=== PATIENT | female | born 1990 | race American Indian/Alaskan Native ===

== ENCOUNTER 2019-12-23 11:07 | Emergency (ER) | payer MEDICAID ==
[2019-12-23 11:43] VITALS: BP 110/74
--- NOTE | 2019-12-23 12:00 | Event Note ---
ED Screening Note Date of service: 12/23/19 Time: 11:57 ED Screening Note: Pt complains of chest pain x yesterday states intermittent x 1 year substernal; states feels liek something is stuck in her chest +tenderness to palpation This initial assessment/diagnostic orders/clinical plan/treatment(s) is/are subject to change based on patients health status, clinical progression and re- assessment by fellow clinical providers in the ED. Further treatment and workup at subsequent clinical providers discretion. Patient/guardian urged not to elope from the ED as their condition may be serious if not clinically assessed and managed. Initial orders include: CXR labs
== END 2019-12-23 12:00 | disposition left against medical advice (07) ==
LOC: ED 11:07
DX: R07.9 Chest pain, unspecified (principal); Z53.21 Procedure and treatment not carried out due to patient leaving prior to being seen by health care provider
CPT/HCPCS: 93005; 93010

== ENCOUNTER 2022-02-23 21:00 | Inpatient (IN) | payer MEDICAID, MEDICARE ==
[2022-02-23 22:07] VITALS: BP 103/65
--- NOTE | 2022-02-23 22:45 | History and Physical Report ---
History of Present Illness Date of admission: 02/23/22 21:15 History of present illness: Chief complaint: Contractions History of present illness: The patient is 36 weeks. She complained of contractions. There is no vaginal bleeding. There is no leakage of fluid. There is good movement. Upon investigation of the records, cervix was 4 cm dilated in the office. Objective: Cervical exam was 4 cm dilated. Contractions are irregular. Electronic monitoring is category 1. Impression: 1.) 36 weeks 2.) contractions Plan: As the cervix is unchanged, give IV fluids and discharged home. Past History - Obstetrical History : 4 Medications and Allergies Allergies Allergy/AdvReac Type Severity Reaction Status Date / Time No Known Allergies Allergy Verified 08/16/15 07:46 Home Medications Medication Instructions Recorded Confirmed Last Taken Type #103/Iron Fumarate/FA 1 each PO QDAY #30 tab 02/12/15 08/17/15 2 Days Ago Rx [ ] ~08/15/15 Amoxicillin [Amoxicillin TAB] 875 mg PO BID #20 tablet 07/01/16 Unknown Rx Ibuprofen [Motrin] 600 mg PO Q8H PRN #15 tablet 07/01/16 Unknown Rx Triamcinolone 0.5% [Kenalog 0.5% 1 applic TP TID #3 tube 02/13/19 Unknown Rx CREAM] - Vital Signs Vital signs: Vital Signs Pulse Ox 100 02/23/22 21:59 Temp Pulse Resp BP Pulse Ox 98.6 F 84 103/65 97 02/23/22 22:07 02/23/22 22:40 02/23/22 22:05 02/23/22 22:40 Results Result Diagrams: 02/23/22 22:00 All other labs normal.
[2022-02-23] MEDS ORDERED: ePHEDrine SULFATE 50 MG/1 ML INJ IV PRN (22:46)
[2022-02-23] MEDS ORDERED: METHYLERGONOVINE MALEATE 0.2 MG/ML VIAL IM PRN (22:46)
[2022-02-23] MEDS ORDERED: TERBUTALINE 1 MG/1 ML INJ SUB-Q PRN (22:46)
[2022-02-23] MEDS ORDERED: CARBOPROST TROMETHAMINE 250 MCG/1 ML INJ IM PRN (22:46)
[2022-02-23] MEDS ORDERED: ACETAMINOPHEN 325 MG TAB PO PRN (22:52)
[2022-02-23] MEDS ORDERED: fentaNYL 100 MCG/2 ML INJ IV PRN (22:52)
[2022-02-23] MEDS ORDERED: PENICILLIN G POTASSIUM 5 MIL.UNITS in SODIUM CHLORIDE 0.9% 50 ML IV ONE (22:52)
[2022-02-23] MEDS ORDERED: BUTORPHANOL 2 MG/1 ML INJ IV PRN (22:52)
[2022-02-23] MEDS ORDERED: LACTATED RINGERS 1,000 ML IV SCH (23:00)
[2022-02-23] MEDS ORDERED: OXYTOCIN DRIP 30 UNITS/500 ML BAG IV SCH (23:00)
[2022-02-23] MEDS ORDERED: PENICILLIN G POTASSIUM 2.5 MIL.UNITS in SODIUM CHLORIDE 0.9% 50 ML IV SCH (23:00)
[2022-02-23] MEDS ORDERED: LACTATED RINGERS 500 ML IV ONE (23:24)
[2022-02-23 23:34] LABS: Hemoglobin 10.2 gm/dl (10.1-14.3); Mean Corpuscular HGB Conc 32 % (30-34); Mean Corpuscular Volume 87 fl (79-97); Platelet Count 309 K/mm3 (140-440); Red Cell Distribution Width 14.8 % (13.2-15.2)
--- NOTE | 2022-02-24 00:44 | Ultrasound Report ---
US OB follow up INDICATION / CLINICAL INFORMATION: Abdominal pain evaluation of estimated weight, HERMELINDO, and cerv ical length. COMPARISON: Transvaginal OB ultrasound 02/12/2015. No other studies available for comparison. TECHNIQUE: Using a transcutaneous probe, multiple grayscale, color Doppler, and spectral Doppler imag es of the uterus and fetus were captured and stored. FINDINGS: Single cephalic fetus is demonstrated with heart rate of 144 bpm. The cervix measures 3 cm. The endocervical canal is not identified on the provided images of the cerv ix. The amniotic fluid index is normal measuring 10.3 cm. Biparietal Diameter = 9.0 cm = 36, 3 weeks, days Head Circumference = 33.3 cm = 38, 1 weeks, days Abdominal Circumference = 30.7 cm = 34, 5 weeks, days Femur Length = 6.8 cm = 35, 0 weeks, days Average Ultrasound Age (AUA) = 36, 1 weeks, days. EDC 03/23/2022. The clinical estimated gestational age based on LMP of 06/11/2021 is 36 weeks 6 days. Estimated weight = 2642 g. IMPRESSION: 1. Single living cephalic fetus with normal amniotic fluid index and estimated weight of 2642 g . 2. As measured the cervix is 3 cm, the endocervical canal not well visualized. Signer Name: Akbar Denney II, MD Signed: 02/24/2022 12:39 AM Workstation Name: [id number]
== END 2022-02-24 00:37 | disposition home or self-care (01) | DRG 778 ==
LOC: TRG 21:00 → LD 21:01 → TRG 21:10 → LD 21:15
PROVIDERS: ADMIT Obstetrics & Gynecology; ATTEND Obstetrics & Gynecology
DX: O60.03 Preterm labor without delivery, third trimester (principal); Z3A.36 36 weeks gestation of pregnancy
CPT/HCPCS: 36415; 59025; 76816; 85027; 86850; 86900; 86901; 96360; G0378

== ENCOUNTER 2022-02-26 07:21 | Inpatient (IN) | payer MEDICAID ==
--- NOTE | 2022-02-26 09:21 | History and Physical Report ---
History of Present Illness Date of examination: 02/26/22 Chief complaint: LOF History of present illness: at 37.1wks by LMP c/w U/S. care at [facility]. Pt c/o LOF at 6:30am and states that she was 7cm in clinic when last seen yesterday. Prenatals have last visit on 02/17/22 at 4cm. Pt admits to FM, denies vag bleed and also admits to ctx for which she declines epidural and wants all natural. labs with B positive, neg antibodies, rubella immune, HIV neg, VDRL n egative and HepBsAg neg. normal 1hrgtt; GBS neg. pt told me today that she had elective x1 in the past, hence the change in her and parity. Past History Past Medical History: other (Anemia, alpha thal carrier; UTI treated this preg) - Obstetrical History Expected Date of Delivery: 03/18/22 Actual Gestation: 37 Week(s) 1 Day(s) : 4 Hx # Term Pregnancies: 1 Number of Pregnancies: 1 (at 36wks without complications) Induced : 1 Number of Living Children: 2 Medications and Allergies Allergies Allergy/AdvReac Type Severity Reaction Status Date / Time No Known Allergies Allergy Verified 08/16/15 07:46 Home Medications Medication Instructions Recorded Confirmed Last Taken Type #103/Iron Fumarate/FA 1 each PO QDAY #30 tab 02/12/15 08/17/15 2 Days Ago Rx [ ] ~08/15/15 Amoxicillin [Amoxicillin TAB] 875 mg PO BID #20 tablet 07/01/16 Unknown Rx Ibuprofen [Motrin] 600 mg PO Q8H PRN #15 tablet 07/01/16 Unknown Rx Triamcinolone 0.5% [Kenalog 0.5% 1 applic TP TID #3 tube 02/13/19 Unknown Rx CREAM] Active Meds: Active Medications Acetaminophen (Acetaminophen 325 Mg Tab) 650 mg PO Q4H PRN PRN Reason: Pain, Mild (1-3) Carboprost Tromethamine (Carboprost Tromethamine 250 Mcg/1 Ml Inj) 250 mcg IM ONCE PRN PRN Reason: Uterine Bleeding Ephedrine Sulfate (Ephedrine Sulfate 50 Mg/1 Ml Inj) 10 mg IV Q2M PRN PRN Reason: Hypotension Fentanyl (Fentanyl 100 Mcg/2 Ml Inj) 100 mcg IV Q2H PRN PRN Reason: Pain,Severe (7-10) LABOR PAIN Oxytocin/Sodium Chloride (Pitocin/Ns 30 Unit/500ml) 30 units in 500 mls @ 2 mls/hr IV TITR MARIANELA; Protocol Lactated Ringer's (Lactated Ringers) 1,000 mls @ 125 mls/hr IV DIRECT MARIANELA Oxytocin/Sodium Chloride (Pitocin/Ns 30 Unit/500ml) 30 units in 500 mls @ 40 mls/hr IV TITR MARIANELA; Protocol Lidocaine (Lidocaine (2%) 20 Mg/1 Ml Vial 20 Ml Mdv) 20 ml INFILTRATI ONCE ONE Stop: 02/26/22 09:07 Loperamide HCl (Loperamide 2 Mg Cap) 2 mg PO ONCE PRN PRN Reason: give with Hemabate Methylergonovine Maleate (Methylergonovine Maleate 0.2 Mg/Ml Vial) 0.2 mg IM ONCE PRN PRN Reason: Uterine Bleeding Mineral Oil (Mineral Oil 30 Ml Oral Liqd) 30 ml PO QHS PRN PRN Reason: Constipation Misoprostol (Misoprostol 200 Mcg Tab) [address] ONCE PRN PRN Reason: Uterine Bleeding Nalbuphine HCl (Nalbuphine 10 Mg/1 Ml Inj) 10 mg IV Q2H PRN PRN Reason: Pain, Moderate (4-6) Ondansetron HCl (Ondansetron 4 Mg/2 Ml Inj) 4 mg IV Q8H PRN PRN Reason: Nausea And Vomiting Oxytocin (Oxytocin 10 Unit/1 Ml Inj) 10 unit IM ONCE PRN PRN Reason: Uterine Bleeding Promethazine HCl (Promethazine 25 Mg Tab) 25 mg PO Q6H PRN PRN Reason: Nausea And Vomiting Terbutaline Sulfate (Terbutaline 1 Mg/1 Ml Inj) 0.25 mg SUB-Q ONCE PRN PRN Reason: Hyperstimulation/Hypertonicity Review of Systems All systems: negative (LOF) - Vital Signs Vital signs: Vital Signs Pulse Pulse Ox 79 100 02/26/22 07:44 02/26/22 07:44 Temp Pulse Resp BP Pulse Ox 98.4 F 81 16 111/72 100 02/26/22 08:41 02/26/22 09:11 02/26/22 08:41 02/26/22 08:39 02/26/22 09:11 - Physical Exam Breasts: Positive: deferred Cardiovascular: Regular rate Lungs: Positive: Normal air movement Abdomen: Positive: soft Genitourinary (Female): Positive: normal external genitalia Vulva: both: normal Uterus: Positive: enlarged (non-tender gravid) Extremities: Positive: normal - Obstetrical FHR: category 1 Uterine Contraction Monitor Mode: External Cervical Dilatation: 5 (not 7cm as per pt report from clinic; also bulging bag felt) Cervical Effacement Percentage: 70 station: -2 Uterine Contraction Pattern: Irregular Uterine Contraction Intensity: Mild Results All other labs normal. Assessment and Plan Term preg with labor, advanced cervical dilatation, with PROM by triage nurse, ?mec stained fluid however forebag felt by me; GBS neg 1. Admit to labor and augment with pitocin if PROM confirmed by rom plus 2. Repeat urine culture with test of cure 3. U/S for HERMELINDO and presentation 4. May have IV pain med as needed and later epidural if pt changes her mind Expect .
[2022-02-26] MEDS ORDERED: fentaNYL 100 MCG/2 ML INJ IV PRN (09:30)
[2022-02-26] MEDS ORDERED: ACETAMINOPHEN 325 MG TAB PO PRN ×2 (09:30→20:15)
[2022-02-26] MEDS ORDERED: ePHEDrine SULFATE 50 MG/1 ML INJ IV PRN (09:30)
[2022-02-26] MEDS ORDERED: CARBOPROST TROMETHAMINE 250 MCG/1 ML INJ IM PRN (09:30)
[2022-02-26] MEDS ORDERED: NalbUPHINE 10 MG/1 ML INJ IV PRN (10:00)
[2022-02-26] MEDS ORDERED: PROMETHAZINE 25 MG TAB PO PRN ×2 (10:00→20:15)
[2022-02-26] MEDS ORDERED: LIDOCAINE (2%) 20 MG/1 ML VIAL 20 ML MDV INFILTRATI SCH (10:00)
[2022-02-26] MEDS ORDERED: OXYTOCIN 10 UNIT/1 ML INJ IM PRN (10:00)
[2022-02-26] MEDS ORDERED: ONDANSETRON 4 MG/2 ML INJ IV PRN ×2 (10:00→20:15)
[2022-02-26] MEDS ORDERED: OXYTOCIN DRIP 30 UNITS/500 ML BAG IV SCH ×3 (10:00→20:15)
[2022-02-26] MEDS ORDERED: LACTATED RINGERS 1,000 ML IV SCH (10:00)
[2022-02-26] MEDS ORDERED: METHYLERGONOVINE MALEATE 0.2 MG/ML VIAL IM PRN (10:00)
[2022-02-26] MEDS ORDERED: TERBUTALINE 1 MG/1 ML INJ SUB-Q PRN (10:00)
[2022-02-26] MEDS ORDERED: miSOPROStol 200 MCG TAB PR PRN (10:00)
[2022-02-26] MEDS ORDERED: LOPERAMIDE 2 MG CAP PO PRN (10:00)
[2022-02-26 10:20] LABS: Hemoglobin 9.2 gm/dl (10.1-14.3); Mean Corpuscular HGB Conc 34 % (30-34); Mean Corpuscular Volume 85 fl (79-97); Platelet Count 254 K/mm3 (140-440); Red Blood Count 3.19 M/mm3 (3.65-5.03); Red Cell Distribution Width 14.5 % (13.2-15.2)
--- NOTE | 2022-02-26 12:08 | Ultrasound Report ---
ULTRASOUND OBSTETRIC LIMITED INDICATION / CLINICAL INFORMATION: PROM, presentation. Clinical Gestational Age (GA) in weeks, days: 37, 1 TECHNIQUE: Transabdominal. COMPARISON: None available. FINDINGS: HEART RATE (beats per minute): 133 AMNIOTIC FLUID INDEX (cm) = 17.3 (normal = 7-24 cm) PRESENTATION: Cephalic. ADDITIONAL FINDINGS: None. IMPRESSION: 1. No significant abnormality. Signer Name: Yash Vergara DO Signed: 02/26/2022 12:04 PM Workstation Name: [id number]
--- NOTE | 2022-02-26 17:40 | Procedure Note ---
OB Delivery Note - Delivery Date of Delivery: 02/26/22 Surgeon: ROSALBA MENDEZ Estimated blood loss: other (150cc) - Vaginal Delivery presentation: vertex Delivery position: OA Delivery induction: none Delivery monitor: external FHT, external uterine Route of delivery: Delivery placenta: spontaneous Delivery cord: 3 umbilical vessels Episiotomy: none Delivery laceration: none Anesthesia: none Delivery comments: pt screaming with pressure. pt was 7/100/-1 and hook used but no membranes felt and then pt states she just started leaking but did not notify us. SROM small amount of clear fluid. Pt continued to scream and push. SAVD of viable male infant uncomplicated, cord cut by FOB when I handed him the pair of scissors and placenta delivered spontaneously by me and complete with 3vessel cord. Cervix examined and no lacerations seen and introitus without laceration as well with perineum intact. Bimanual exam with firm fundus. Mom and baby stable and ROBIN nurse came in post delivery. - Infant A at 1 minute: 8 at 5 minutes: 9 Infant Gender: Male (Wt 2780g; clear amniotic fluid)
[2022-02-26] MEDS ORDERED: PROMETHAZINE 25 MG RECT SUPP PR PRN (20:15)
[2022-02-26] MEDS ORDERED: WITCH HAZEL/ GLYCERIN PAD TP PRN (20:15)
[2022-02-26] MEDS ORDERED: LANOLIN/ZINC/DIMETHICONE (LANSINOH) 7 GM TP PRN ×2 (20:15)
[2022-02-26] MEDS ORDERED: MAGNESIUM HYDROXIDE (MOM) ORAL LIQD UDC PO PRN (20:15)
[2022-02-26] MEDS ORDERED: diphenhydrAMINE 25 MG CAP PO PRN (20:15)
[2022-02-26] MEDS: IBUPROFEN 600 MG TAB PO SCH (21:45)
[2022-02-26] MEDS ORDERED: MINERAL OIL 30 ML ORAL LIQD PO PRN (22:00)
[2022-02-27] MEDS: oxyCODONE /ACETAMINOPHEN 5-325MG TAB PO PRN (00:41)
[2022-02-27] MEDS: IBUPROFEN 600 MG TAB PO SCH ×4 (05:16→23:12)
--- NOTE | 2022-02-27 09:03 | Progress Note ---
Assessment and Plan A: day 1 S/P . Anemia. P: Oral iron supplementation. Continue routine care. Anticipate discharge home tomorrow morning if patient continues to do well. Subjective - Subjective Date of service: 02/27/22 Principal diagnosis: day 1 S/P Patient reports: appetite normal, voiding normally, pain well controlled, flatus, ambulating normally, no dizzy ambulation, no nauseated : doing well Objective - Vital Signs Latest vital signs: Vital Signs Temp Pulse Resp BP BP Pulse Ox Pulse Ox 02/27/22 07:43 98.1 F 65 22 91/55 100 02/27/22 05:16 18 02/27/22 05:05 97.9 F 67 18 112/54 98 02/27/22 00:41 18 02/27/22 00:12 98.3 F 71 16 98/62 100 02/26/22 23:37 98 02/26/22 19:58 98.1 F 81 18 105/69 100 02/26/22 19:35 71 14 109/59 109/59 100 02/26/22 19:34 98.8 F 02/26/22 19:13 83 109/53 02/26/22 19:11 88 100 02/26/22 19:06 92 H 100 02/26/22 19:01 86 100 02/26/22 18:56 91 H 100 02/26/22 18:51 82 100 02/26/22 18:46 89 100 02/26/22 18:41 78 111/68 100 02/26/22 18:36 70 100 02/26/22 18:31 78 100 02/26/22 18:26 80 110/59 100 02/26/22 18:21 70 100 02/26/22 18:16 71 100 02/26/22 18:11 74 118/70 100 02/26/22 18:06 89 100 02/26/22 18:01 84 100 02/26/22 17:57 76 134/73 02/26/22 17:56 72 100 02/26/22 17:51 75 100 02/26/22 17:46 67 100 02/26/22 17:42 67 120/67 02/26/22 17:41 69 100 02/26/22 17:36 63 100 02/26/22 17:18 71 99 05/05/22 17:13 92 H 100 05/05/22 17:11 71 111/72 05/05/22 17:08 73 99 05/05/22 17:03 68 99 05/05/22 16:58 78 98 05/05/22 16:56 75 115/67 05/05/22 16:55 74 94 05/05/22 16:53 73 96 05/05/22 16:48 76 99 05/05/22 16:46 76 91 05/05/22 16:43 71 100 05/05/22 16:42 75 118/71 05/05/22 16:36 77 121/70 05/05/22 15:37 81 110/69 05/05/22 15:22 80 99 05/05/22 15:17 77 100 05/05/22 15:12 84 100 05/05/22 15:07 78 100 05/05/22 15:02 69 100 05/05/22 14:57 67 99 05/05/22 14:52 82 99 05/05/22 14:47 86 99 05/05/22 14:42 82 100 05/05/22 14:37 80 100 05/05/22 14:36 75 107/68 05/05/22 14:32 83 99 05/05/22 14:27 73 99 05/05/22 14:22 81 100 05/05/22 14:17 74 99 05/05/22 14:15 80 94 05/05/22 14:12 92 H 99 05/05/22 14:07 79 99 05/05/22 14:02 73 98 05/05/22 13:57 73 99 05/05/22 13:52 99 H 98 05/05/22 13:47 98 H 99 05/05/22 13:42 79 97 05/05/22 13:37 85 100/60 98 05/05/22 13:32 81 100 05/05/22 13:27 84 95 05/05/22 13:26 95 H 94 05/05/22 13:22 85 96 05/05/22 13:17 84 96 05/05/22 13:12 92 H 97 05/05/22 13:07 87 99 05/05/22 13:03 81 94 05/05/22 13:02 86 98 05/05/22 12:57 83 99 05/05/22 12:52 107 H 100 05/05/22 12:47 93 H 100 05/05/22 12:42 88 98 05/05/22 12:37 85 99 05/05/22 12:36 85 103/65 05/05/22 12:32 80 100 05/05/22 12:27 83 100 05/05/22 12:22 103 H 100 05/05/22 12:17 86 100 05/05/22 12:12 86 98 05/05/22 12:07 88 99 05/05/22 12:02 88 99 05/05/22 11:57 105 H 100 05/05/22 11:52 85 98 05/05/22 11:47 83 98 05/05/22 11:42 85 100 05/05/22 11:37 81 100 05/05/22 11:36 80 103/64 05/05/22 11:32 91 H 99 05/05/22 11:27 82 99 05/05/22 11:22 87 98 05/05/22 11:17 82 99 05/05/22 11:12 90 99 05/05/22 11:07 101 H 99 05/05/22 11:02 92 H 100 05/05/22 10:57 94 H 99 05/05/22 10:52 80 99 05/05/22 10:47 71 100 05/05/22 10:42 67 99 05/05/22 10:37 75 100 05/05/22 10:32 77 100 05/05/22 10:27 70 99 05/05/22 10:21 74 99 05/05/22 10:16 76 98 05/05/22 10:11 86 99 05/05/22 10:06 82 100 05/05/22 10:01 87 99 05/05/22 09:56 79 100 05/05/22 09:51 83 99 05/05/22 09:46 75 100 05/05/22 09:41 89 99 05/05/22 09:36 88 94 05/05/22 09:31 89 99 05/05/22 09:26 84 98 05/05/22 09:21 85 99 05/05/22 09:16 91 H 100 05/05/22 09:11 81 100 05/05/22 09:06 87 100 05/05/22 09:01 85 98 Intake and Output 05/05/22 05/06/22 05/06/22 23:59 07:59 15:59 Intake Total 600 360 Output Total 1000 400 Balance -400 -40 Intake: Oral 360 360 Intake, Free Water 240 Output: Urine 1000 400 Void 1000 400 Other: Total, Intake Amount 360 120 Total, Output Amount 600 400 # Voids Void 1 - Exam Cardiovascular: Present: Regular rate Lungs: Present: Clear to auscultation Abdomen: Present: normal appearance, soft. Absent: distention, tenderness, guarding, rigidity Uterus: Present: normal, firm, fundal height below umbilicus. Absent: bogginess, tenderness Extremities: Absent: tenderness - Labs Labs: Abnormal lab results 02/26/22 Range/Units 09:40 RBC 3.19 L (3.65-5.03) M/mm3 Hgb 9.2 L (10.1-14.3) gm/dl Hct 27.0 L (30.3-42.9) %
[2022-02-27] MEDS: PRENATAL VIT27-FE FUMARATE-FOLIC ACID VIT TAB PO SCH (10:27)
[2022-02-27] MEDS: FERROUS SULFATE 325 MG TAB PO SCH ×2 (10:27→23:12)
[2022-02-27 10:37] LABS: Hematocrit 26.9 % (30.3-42.9); Hemoglobin 8.8 gm/dl (10.1-14.3)
[2022-02-28] MEDS: oxyCODONE /ACETAMINOPHEN 5-325MG TAB PO PRN (01:54)
[2022-02-28] MEDS: IBUPROFEN 600 MG TAB PO SCH ×2 (05:57→17:32)
[2022-02-28] MEDS ORDERED: TETANUS,DIPH,PERTUSS(ACELL) VACCINE 0.5 ML SYRINGE IM ONE (06:00)
--- NOTE | 2022-02-28 06:37 | Progress Note ---
Assessment and Plan A: day 2 S/P . Anemia. P: Discharge patient home today. Discussed with patient discharge instructions and warning signs. Advised patient to continue taking her vitamin and iron supplements at home (Rx Ferrous Sulfate printed and left on patient's chart). Advised patient to avoid intercourse, lifting, and heavy housework. Advised patient to follow up at [facility] in 2 weeks. Patient voiced understanding of all instructions. Subjective - Subjective Date of service: 02/28/22 Principal diagnosis: day 2 S/P Interval history: Patient desires discharge home today. Patient reports: appetite normal, voiding normally, pain well controlled, flatus, ambulating normally, no dizzy ambulation, no nauseated [place]: doing well, nursing well Objective - Vital Signs Latest vital signs: Vital Signs Temp Pulse Resp BP Pulse Ox Pulse Ox 02/28/22 01:54 18 02/28/22 00:59 98.8 F 61 18 100/61 98 02/27/22 12:51 16 02/27/22 08:45 100 02/27/22 07:43 98.1 F 65 22 91/55 100 Intake and Output 02/27/22 02/27/22 02/28/22 15:59 23:59 07:59 Intake Total 200 300 Balance 200 300 Intake: Oral 200 Intake, Free Water 300 Other: Total, Intake Amount 200 # Voids Void 1 1 - Exam Cardiovascular: Present: Regular rate Lungs: Present: Clear to auscultation Abdomen: Present: normal appearance, soft. Absent: distention, tenderness, guarding, rigidity Uterus: Present: normal, firm, fundal height below umbilicus. Absent: bogginess, tenderness Extremities: Absent: tenderness, edema - Labs Labs: Abnormal lab results 02/27/22 Range/Units 10:07 Hgb 8.8 L (10.1-14.3) gm/dl Hct 26.9 L (30.3-42.9) %
--- NOTE | 2022-02-28 06:41 | Discharge Summary ---
Providers - Providers Date of Admission: 02/26/22 07:22 Date of discharge: 02/28/22 Attending physician: ROSALBA MENDEZ Primary care physician: ROSALBA MENDEZ Hospitalization Reason for admission: active labor Delivery: Laceration: none Other procedures: none complications: none Discharge diagnosis: IUP at term delivered [place] baby: male Pertinent studies: Labs Hospital course: Stable hospital course. Condition at discharge: Good Disposition: 01 HOME / SELF CARE / HOMELESS - Discharge Diagnoses (1) Term delivered Status: Acute (2) Anemia Status: Acute Plan - Discharge Medications Prescriptions: Ferrous Sulfate [Feosol 325 MG tab] 325 mg PO BID 30 Days #60 tablet - Provider Discharge Summary Activity: routine, no sex for 6 weeks, no heavy lifting 4 weeks, no strenuous exercise Diet: routine Instructions: routine Additional instructions: Continue taking your vitamin and iron supplements at home. Follow up at [facility] in 2 weeks. Call your doctor immediately for: * Fever > 100.5 * Heavy vaginal bleeding ( >1 pad per hour) * Severe persistent headache * Shortness of breath * Reddened, hot, painful area to leg or breast - Follow up plan Follow up: BRITTA LUCIA CNM [Advanced Practice Nurse] - 14 Days
[2022-02-28] MEDS: FERROUS SULFATE 325 MG TAB PO SCH (10:11)
[2022-02-28] MEDS: PRENATAL VIT27-FE FUMARATE-FOLIC ACID VIT TAB PO SCH (10:11)
[2022-02-28 17:39] VITALS: BP 102/69
== END 2022-02-28 18:45 | disposition home or self-care (01) | DRG 775 ==
LOC: LD 07:21 → TRG 07:21 → APU 07:22 → LD 07:22 → TRG 08:32 → OB 19:45
PROVIDERS: ADMIT Obstetrics & Gynecology; ATTEND Obstetrics & Gynecology
PROC: 10E0XZZ Delivery of Products of Conception, External Approach (ICD-10-PCS; principal; 2022-02-26)
PROC: 3E0234Z Introduction of Serum, Toxoid and Vaccine into Muscle, Percutaneous Approach (ICD-10-PCS; 2022-02-28)
DX: O90.81 Anemia of the puerperium (principal); Z3A.37 37 weeks gestation of pregnancy; Z37.0 Single live birth; Z20.822 Contact with and (suspected) exposure to COVID-19; Z23 Encounter for immunization
CPT/HCPCS: 36415; 76815; 84112; 85014; 85018; 85027; 86592; 86850; 86900; 86901; 87086; 90715; G0378; J2590; J3010; J7120; U0003